=== PATIENT | male | born 1975 | race Caucasian/White ===

== ENCOUNTER → 2017-01-01 | Outpatient (CLI) | payer OTHER ==
[~2017-01-01] MED LIST: CELEXA40 MG PO; NEURONTIN600 MG/TAB PO
== END ==
LOC: BHSO 11:18
DX: F41.1 Generalized anxiety disorder (principal)

== ENCOUNTER → 2017-07-16 | Outpatient (CLI) | payer OTHER | LOC: BHSO 14:58 | DX: F41.1 Generalized anxiety disorder (principal) ==

== ENCOUNTER 2018-08-21 12:36 | Emergency (ER) | payer OTHER ==
[~2018-08-21] VITALS: Ht 177.8 cm; Wt 97.7 kg
[2018-08-21 12:59] VITALS: BP 119/83; TEMP 98.5
[2018-08-21] MEDS ORDERED: ILOTYCIN5 MG/GM OP (13:14)
[2018-08-21 14:08] VITALS: PULSE 86
== END 2018-08-21 14:11 | disposition home or self-care (01) ==
LOC: COL.ER 12:36
DX: H02.844 Edema of left upper eyelid (principal); H00.014 Hordeolum externum left upper eyelid